=== PATIENT | female | born 1965 | race Caucasian/White ===

== ENCOUNTER 2021-04-18 16:31 | Emergency (ER) | payer SELFPAY ==
[~2021-04-18] VITALS: Ht 167.6 cm; Wt 61.3 kg
[2021-04-18 16:43] VITALS: BP 139/115
--- NOTE | 2021-04-18 17:30 | RAD ---
XR RIBS MIN 3 VIEWS LT W/PA CHEST History: Fall. Comparison: None. Technique: PA chest and 2 views of the lateral ribs. Findings: The lungs are adequately and symmectrically inflated. No airspace consolidation, pleural effusion or pneumothorax. The cardiomediastinal silhoutte and pulmonary vasculature are within normal limits. Sof t tissues are unremarkable. There is a mildly displaced lateral left sixth rib fracture. There is bip hasic scoliosis of the thoracolumbar spine. Impression: 1. Mildly displaced lateral left sixth rib fracture. No pleural effusion or pneumothorax. Electronically signed by: Alek Sánchez MD (04/18/2021 5:28 PM) [facility]
--- NOTE | 2021-04-18 17:46 | PHYS DOC ---
Past History Past Surgical History: No Surgical History Alcohol Use: Occasionally General Adult EDM: Chief Complaint: RIB PAIN HPI: HPI: ".. I tripped and fell on the stairs last night... But I am still hurting here on the left.." Patient is a 55 year old female who presents with above hx and complaints of fall on stair s last night. Patient localizes pain on the left chest wall. Has almost point tenderness anterior axillary line. Does have pain on anterior posterior compressions and side to side compressions chest wall. Breath sounds equal apex. Patient denies any history immunosuppression. No recent travel. No severe ill contacts. Pt. follows with Dr. Hawley at [facility]. Review of Systems: Review of Systems: Constitutional: Denies fever or chills Eyes: Denies change in visual acuity HENT: Denies nasal congestion or sore throat Respiratory: Denies cough or shortness of breath Cardiovascular: Complains of left chest wall pain GI: Denies abdominal pain, nausea, vomiting, bloody stools or diarrhea : Denies dysuria Musculoskeletal: Denies back pain or joint pain Integument: Denies rash Neurologic: Denies headache, focal weakness or sensory changes Endocrine: Denies polyuria or polydipsia Lymphatic: Denies swollen glands Psychiatric: Denies depression or anxiety Family History: Family History: Noncontributory to presentation Current Medications: Current Meds: See nursing for home meds Allergies: Allergies: Allergies Coded Allergies Type Severity Reaction Last Updated Verified aspirin Allergy Unknown 04/18/21 Yes Physical Exam: PE: Constitutional: Mild/moderate acute distress, non-toxic appearance. [] HENT: Normocephalic, atraumatic, bilateral external ears normal, oropharynx moist, no oral exudates, nose normal. [] Eyes: PERRLA, EOMI, conjunctiva normal, no discharge. [] Neck: Normal range of motion, no tenderness, supple, no stridor. [] Cardiovascular:Heart rate regular rhythm, no murmur [] Lungs & Thorax: Bilateral breath sounds equal apex on auscultation [. The patient] has marked left chest wall tenderness Abdomen: Bowel sounds normal, soft, no tenderness, no masses, no pulsatile masses. No liver or spleen tenderness. Skin: Warm, dry, no erythema, no rash. [] Back: No tenderness, no CVA tenderness. [] Extremities: No tenderness, no cyanosis, no clubbing, ROM intact, no edema. No cording. Neurologic: Alert and oriented X 3, normal motor function, normal sensory function, no focal deficits noted. [] Psychologic: Affec anxious, judgement normal, mood normal. [] Current Patient Data: Vital Signs: Vital Signs Date Time Temp Pulse Resp B/P (MAP) Pulse Ox O2 Delivery O2 Flow Rate FiO2 04/18/21 16:43 98.0 76 16 139/115 95 Room Air EKG: EKG: [] Radiology/Procedures: Radiology/Procedures: [][address] [address] IMAGING REPORT Signed PATIENT: COY MUNROE ACCOUNT: [id number] : 1965 LOCATION: ER AGE: 55 SEX: F EXAM STATUS: REG ER ORD. PHYSICIAN: MERNA BARNES DO REASON: fall PROCEDURE: RIBS LEFT AND PA CHEST XR RIBS MIN 3 VIEWS LT W/PA CHEST History: Fall. Comparison: None. Technique: PA chest and 2 views of the lateral ribs. Findings: The lungs are adequately and symmectrically inflated. No airspace consolidation, pleural effusion or pneumothorax. The cardiomediastinal silhoutte and pulmonary vasculature are within normal limits. Soft tissues are unremarkable. There is a mildly displaced lateral left sixth rib fracture. There is biphasic scoliosis of the thoracolumbar spine. Impression: 1. Mildly displaced lateral left sixth rib fracture. No pleural effusion or pneumothorax. Electronically signed by: Alek Simpson MD (04/18/2021 5:28 PM) [facility] DICTATED AND SIGNED BY: ALEK SIMPSON MD DATE: 04/18/21 1724 CC: EMERGENCY,DEPARTMENT; SARAY HAWLEY; MERNA BARNES DO ~MTH0 [address] [place] [id number] IMAGING REPORT Signed PATIENT: COY MUNROE ACCOUNT: [id number] : 1965 LOCATION: ER AGE: 55 SEX: F EXAM STATUS: REG ER ORD. PHYSICIAN: MERNA BARNES DO REASON: fall PROCEDURE: RIBS LEFT AND PA CHEST XR RIBS MIN 3 VIEWS LT W/PA CHEST History: Fall. Comparison: None. Technique: PA chest and 2 views of the lateral ribs. Findings: The lungs are adequately and symmectrically inflated. No airspace consolidation, pleural effusion or pneumothorax. The cardiomediastinal silhoutte and pulmonary vasculature are within normal limits. Soft tissues are unremarkable. There is a mildly displaced lateral left sixth rib fracture. There is biphasic scoliosis of the thoracolumbar spine. Impression: 1. Mildly displaced lateral left sixth rib fracture. No pleural effusion or pneumothorax. Electronically signed by: Alek Simpson MD (04/18/2021 5:28 PM) [facility] DICTATED AND SIGNED BY: ALEK SIMPSON MD DATE: 04/18/211723 CC: EMERGENCY,DEPARTMENT; SARAY HAWLEY; MERNA BARNES DO ~MTH0 0 Heart Score: C/O Chest Pain: N/A Risk Factors: Risk Factors: DM, Current or recent (<one month) smoker, HTN, HLP, family history of CAD, obesity. Risk Scores: Score 0 - 3: 2.5% MACE over next 6 weeks - Discharge Home Score 4 - 6: 20.3% MACE over next 6 weeks - Admit for Clinical Observation Score 7 - 10: 72.7% MACE over next 6 weeks - Early Invasive Strategies Course & Med Decision Making: Course & Med Decision Making Pertinent Labs and Imaging studies reviewed. (See chart for details) Use ice packs as needed. Do not blame chest. Use incentive spirometry. Take Tylenol ibuprofen as needed for pain. Follow-up primary care. Advised patient to be sometime before she has adequate healing and expect chest wall tenderness 4 weeks. Follow-up primary care. Return if any concerns. Impression: 1. Trip and fall 2. Left sixth rib fracture mild displacement [] Dragon Disclaimer: Dragon Disclaimer: This electronic medical record was generated, in whole or in part, using a voice recognition dictation system. Departure Departure: Referrals: SARAY HAWLEY (PCP) Robin Disclaimer This chart was dictated in whole or in part using Voice Recognition software in a busy, high-work load, and often noisy Emergency Department environment. It may contain unintended and wholly unrecognized errors or omissions. Dragon Disclaimer This chart was dictated in whole or in part using Voice Recognition software in a busy, high-work load, and often noisy Emergency Department environment. It may contain unintended and wholly unrecognized errors or omissions. SAIMA PARSONS MD Apr 18, 2021 17:46
[2021-04-18] MEDS ORDERED: oxyCODONE/APAP 5/325 1 TAB TABLET PO ONE (18:00)
== END 2021-04-18 18:22 | disposition home or self-care (01) ==
LOC: ER 16:31
DX: S22.32XA Fracture of one rib, left side, initial encounter for closed fracture (principal); Z88.6 Allergy status to analgesic agent; W18.09XA Striking against other object with subsequent fall, initial encounter; Y93.89 Activity, other specified; Y92.89 Other specified places as the place of occurrence of the external cause; Y99.8 Other external cause status
CPT/HCPCS: 71101; 99283